=== PATIENT | female | born 1970 | race Two or more races ===

== ENCOUNTER → 2016-06-01 | Outpatient (CLI) | payer OTHER ==
[2015-02-22 15:44] VITALS: BP 111/71
[~2016-06-01] MED LIST: OXYC-323 PO; PROM25SU32 RC
[2016-06-01 15:27] LABS: BILIRUBIN,URINE NEG (NEG); CLARITY,URINE CLEAR; COLOR,URINE YELLOW; GLUCOSE,URINE NEG (NEG); NITRITE,URINE NEG (NEG); UROBILINOGEN,URINE 0.2 mg/dL (0.2 mg/dL)
[2016-06-01 15:28] LABS: BACTERIA,URINE FEW /HPF (0-FEW); SQUAMOUS EPITHELIAL CELL,UR FEW /LPF
[2016-06-03 19:10] LABS: ANA INTERP Negative (.)
== END | disposition home or self-care (01) ==
LOC: LAB 14:44
PROVIDERS: ATTEND Internal Medicine Gastroenterology
DX: R10.2 Pelvic and perineal pain (principal)
CPT/HCPCS: 36415; 81001; 87086

== ENCOUNTER → 2016-12-31 | Outpatient (CLI) | payer OTHER ==
[2015-02-22 15:44] VITALS: BP 111/71
[2016-12-31 09:35] LABS: HEMATOCRIT 40.7 % (36.0-47.0)
[2016-12-31 17:14] LABS: DHEA SO4 103.9 ug/dL (41.2-243.7); FSH 15.1 mIU/mL (.); PROLACTIN 11.8 ng/mL (4.8-23.3); TESTOSTERONE TOTAL 6 ng/dL (8-48)
[2016-12-31 18:10] LABS: CORTISOL AM 9.9 ug/dL (6.2-19.4); HEMOGLOBIN A1C 4.4 % (4.8-5.6)
[2017-01-01 16:07] LABS: ACTH 12.7 pg/mL (7.2-63.3)
== END | disposition home or self-care (01) ==
LOC: LAB 08:23
PROVIDERS: ATTEND Nurse Practitioner Family
DX: E46 Unspecified protein-calorie malnutrition (principal); M79.89 Other specified soft tissue disorders; R53.83 Other fatigue; E55.9 Vitamin D deficiency, unspecified
CPT/HCPCS: 36415; 82024; 82306; 82533; 82627; 82670; 83001; 83036; 84146; 84403; 84443; 85014; 85018; 86376

== ENCOUNTER 2017-01-24 13:39 | Emergency (ER) | payer OTHER ==
[~2017-01-24] VITALS: Ht 162.6 cm; Wt 72.6 kg
[2017-01-24 13:50] VITALS: BP 161/68
--- NOTE | 2017-01-24 14:06 | PHYS DOC ---
Past History Past Medical History: No Pertinent History Past Surgical History: Hysterectomy, Other Alcohol Use: Occasionally Drug Use: None Adult General Chief Complaint Chief Complaint: SORE THROAT HPI HPI Patient is a 47 year old F who presents with a cough and the sore throat. Patient states that for the past 2 days she's had a worsening cough and congestion with increasing sore throat. Patient denies any fevers. Patient denies any chest pain. Patient denies any nausea/vomiting/diarrhea. Patient has no other complaints. Review of Systems Review of Systems GEN: Denies fevers, chills, sweats HEENT: Sore throat CV: Denies chest pain RESP: Cough GI: Denies n/v/d NEURO: Denies confusion, dizziness MSK: Denies weakness, joint pain/swelling All other systems were reviewed and found to be within normal limits, except as documented in this note. Allergies Allergies Allergies Coded Allergies Type Severity Reaction Last Updated Verified Sulfa (Sulfonamide Antibiotics) Allergy Unknown Itching 02/22/15 Yes Physical Exam Physical Exam GEN.: No apparent distress. Alert and oriented. HEENT: Head is normocephalic, atraumatic, TMs clear bilaterally, posterior pharynx nonerythematous no tonsillar swelling NECK: Supple, no lymphadenopathy LUNGS: CTAB. HEART: RRR, S1, S2 present. Peripheral pulses intact ABDOMEN: Soft, nontender. Positive bowel sounds. EXTREMITIES: Without any cyanosis. NEUROLOGIC: Normal speech, normal tone PSYCHIATRIC: Normal affect, normal mood. SKIN: No ulcerations Current Patient Data Vital Signs Laboratory Tests Test 01/24/17 14:00 Group A Streptococcus Rapid Negative EKG EKG [] Radiology/Procedures Radiology/Procedures Chest x-ray NAD[] Course & Med Decision Making Course & Med Decision Making Pertinent Labs and Imaging studies reviewed. (See chart for details) ED course: Patient was seen and examined a chest x-ray and rapid strep was ordered 1420: Patient was updated on results and explained to the patient that she most likely has a viral infection is not eating a box at this time. She is stable for discharge. MDM: After reviewing the chart, CC/HPI/PMH, physical exam, [lab results], [ radiological results], I do not believe the patient has a severe bacterial infection warranting further workup and/or admission at this time. I believe the patient has a viral URI and can be discharged home with aebe-lqq-ebxrgrb treatment. Patient stable for discharge. Additional verbal discharge instructions were provided to the patient and that if symptoms get worse or any new symptoms arise that are worrisome to the patient she is to return to the emergency room immediately [] Dragon Disclaimer Dragon Disclaimer This electronic medical record was generated, in whole or in part, using a voice recognition dictation system. Departure Departure: Impression: Primary Impression: Viral URI with cough Disposition: 01 HOME, SELF-CARE Condition: STABLE Referrals: KOMAL HUBER APRN (PCP) Patient Instructions: Upper Respiratory Infection, Adult Additional Instructions: Please follow-up with your family physician in the next one to 2 days and return if symptoms increase MIRTA ESCOBEDO DO Jan 24, 2017 14:06
--- NOTE | 2017-01-24 14:24 | RAD ---
Indication: Cough for a couple of days. Technique: Two-view chest radiograph was obtained. No comparison is available. Findings: The lungs are clear. The cardiopulmonary silhouette is within normal limits. There is no pleural effusion. The bony structures are intact. Impression: No acute thoracic findings.
== END 2017-01-24 14:50 | disposition home or self-care (01) ==
LOC: ER 13:39
DX: J06.9 Acute upper respiratory infection, unspecified (principal); Z88.2 Allergy status to sulfonamides
CPT/HCPCS: 71020; 87070; 87880; 99285

== ENCOUNTER → 2017-02-16 | Outpatient (CLI) | payer OTHER ==
[2017-01-24 13:50] VITALS: BP 161/68
--- NOTE | 2017-02-16 15:12 | RAD ---
DATE: 02/16/2017 EXAM: MAMMO LAINEY SCREENING BILATERAL HISTORY: Routine screening COMPARISON: 06/23/2012 This study was interpreted with the benefit of Computerized Aided Detection (CAD). FINDINGS: Breast Density: SCATTERED The breast parenchyma shows scattered fibroglandular densities. Breast parenchyma level B. There are no dominant suspicious masses, suspicious microcalcifications or evidence of architectural distortion. IMPRESSION: Negative mammogram BI-RADS CATEGORY: 1 NEGATIVE RECOMMENDED FOLLOW-UP: 12M 12 MONTH FOLLOW-UP PQRS compliance statement: Patient information was entered into a reminder system with a target due date 02/16/2018 for the next mammogram. Mammography is a sensitive method for finding small breast cancers, but it does not detect them all and is not a substitute for careful clinical examination. A negative mammogram does not negate a clinically suspicious finding and should not result in delay in biopsying a clinically suspicious abnormality. "Our facility is accredited by the [employer] Mammography Program."
== END | disposition home or self-care (01) ==
LOC: MAMMO 13:57
PROVIDERS: ATTEND Nurse Practitioner Family
DX: Z12.31 Encounter for screening mammogram for malignant neoplasm of breast (principal); Z72.89 Other problems related to lifestyle
CPT/HCPCS: 77063; G0202; 77067

== ENCOUNTER → 2017-07-06 | Outpatient (CLI) | payer OTHER ==
[2017-07-06 08:25] LABS: BASO # 0.1 x10^3/uL (0.0-0.2); BASO % 1 % (0-3); EOS # 0.1 x10^3/uL (0.0-0.7); EOS % 1 % (0-3); HEMATOCRIT 41.6 % (36.0-47.0); HEMOGLOBIN 14.2 g/dL (12.0-15.5); LYMPH # 1.6 x10^3/uL (1.0-4.8); LYMPH % 15 % (24-48); MEAN CORPUSCULAR HEMOGLOBIN 32 pg (25-35); MEAN CORPUSCULAR HGB CONC 34 g/dL (31-37); MEAN CORPUSCULAR VOLUME 94 fL (79-100); MONO # 0.5 x10^3/uL (0.0-1.1); MONO % 5 % (0-9); NEUT # 8.3 x10^3uL (1.8-7.7); NEUT % 79 % (31-73); PLATELET COUNT 274 x10^3/uL (140-400); RED BLOOD COUNT 4.43 x10^6/uL (3.50-5.40); RED CELL DISTRIBUTION WIDTH 12.8 % (11.5-14.5); WHITE BLOOD COUNT 10.6 x10^3/uL (4.0-11.0)
[2017-07-06 08:36] LABS: ALBUMIN 3.6 g/dL (3.4-5.0); CALCIUM 8.6 mg/dL (8.5-10.1); CREATININE 0.8 mg/dL (0.6-1.0); DIRECT BILIRUBIN 0.1 mg/dL (0.0-0.2); GFR 76.6; POTASSIUM 3.6 mmol/L (3.5-5.1); TOTAL BILIRUBIN 0.4 mg/dL (0.2-1.0); TOTAL PROTEIN 7.1 g/dL (6.4-8.2)
[2017-07-06 08:37] LABS: BACTERIA,URINE FEW /HPF (0-FEW); BILIRUBIN,URINE NEG (NEG); CLARITY,URINE CLEAR; COLOR,URINE YELLOW; GLUCOSE,URINE NEG (NEG); NITRITE,URINE NEG (NEG); RBC,URINE 0 /HPF (0-2); SQUAMOUS EPITHELIAL CELL,UR OCC /LPF; UROBILINOGEN,URINE 0.2 mg/dL (0.2 mg/dL)
[2017-07-06 14:32] LABS: THYROID STIM HORMONE (TSH) 2.181 uIU/mL (0.358-3.740)
== END | disposition home or self-care (01) ==
LOC: LAB 07:02
PROVIDERS: ATTEND Nurse Practitioner Family
DX: E78.5 Hyperlipidemia, unspecified (principal); R30.0 Dysuria; R53.83 Other fatigue
CPT/HCPCS: 36415; 80048; 80061; 80076; 81001; 84436; 84443; 85025

== ENCOUNTER → 2017-08-31 | Outpatient (CLI) | payer OTHER ==
--- NOTE | 2017-08-31 10:37 | RAD ---
EXAM: Right ankle, 2 views. HISTORY: Pain and swelling. COMPARISON: None. FINDINGS: 2 views of the right ankle are obtained. There is no fracture, dislocation or subluxation. There is mild soft tissue swelling. IMPRESSION: 1. Mild right ankle soft tissue swelling. 2. No acute osseous finding. Electronically signed by: Kanwal Patel MD (08/31/2017 10:34 AM) [id number]
== END | disposition home or self-care (01) ==
LOC: DXRAD 09:23
PROVIDERS: ATTEND Physician Assistant Medical
DX: M79.89 Other specified soft tissue disorders (principal); E78.5 Hyperlipidemia, unspecified; E55.9 Vitamin D deficiency, unspecified
CPT/HCPCS: 73600

== ENCOUNTER 2017-11-08 03:38 | Emergency (ER) | payer OTHER ==
[2017-11-08 03:46] VITALS: BP 122/86
[2017-11-08 04:37] LABS: BACTERIA,URINE FEW /HPF (0-FEW); BILIRUBIN,URINE NEG (NEG); CLARITY,URINE CLEAR; COLOR,URINE YELLOW; GLUCOSE,URINE NEG (NEG); NITRITE,URINE NEG (NEG); RBC,URINE OCC /HPF (0-2); SQUAMOUS EPITHELIAL CELL,UR FEW /LPF; UROBILINOGEN,URINE 0.2 mg/dL (0.2 mg/dL)
--- NOTE | 2017-11-08 04:38 | PHYS DOC ---
Past History Past Medical History: No Pertinent History Past Surgical History: Hysterectomy, Other Alcohol Use: Occasionally Drug Use: None Adult General Chief Complaint Chief Complaint: URINARY FREQUENCY HPI HPI 47-year-old female presents with increased urinary frequency and upper respiratory symptoms. Patient states that she has a history of UTIs as she has had increased frequency the last couple of days. Over the same period, the patient has had increasing cough and nasal congestion. She denies fever or chills. 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 She denies any sputum. She denies shortness of breath or chest pain. Review of Systems Review of Systems Constitutional: Denies fever or chills [] Eyes: Denies change in visual acuity, redness, or eye pain [] HENT: Denies nasal congestion or sore throat [] Respiratory: Cough [] Cardiovascular: No additional information not addressed in HPI [] GI: Denies abdominal pain, nausea, vomiting, bloody stools or diarrhea [] : Increased urinary frequency [] Musculoskeletal: Denies back pain or joint pain [] Integument: Denies rash or skin lesions [] Neurologic: Denies headache, focal weakness or sensory changes [] Endocrine: Denies polyuria or polydipsia [] All other systems were reviewed and found to be within normal limits, except as documented in this note. Allergies Allergies Allergies Coded Allergies Type Severity Reaction Last Updated Verified Sulfa (Sulfonamide Antibiotics) Allergy Unknown Itching 02/22/15 Yes Physical Exam Physical Exam Constitutional: Well developed, well nourished, no acute distress, non-toxic appearance. [] HENT: Normocephalic, atraumatic, bilateral external ears normal, oropharynx moist, no oral exudates, nasal congestion. [] Eyes: PERRLA, EOMI, conjunctiva normal, no discharge. [] Neck: Normal range of motion, no tenderness, supple, no stridor. [] Cardiovascular:Heart rate regular rhythm, no murmur [] Lungs & Thorax: Bilateral breath sounds clear to auscultation [] Abdomen: Bowel sounds normal, soft, no tenderness, no masses, no pulsatile masses. [] Skin: Warm, dry, no erythema, no rash. [] Back: No tenderness, no CVA tenderness. [] Extremities: No tenderness, no cyanosis, no clubbing, ROM intact, no edema. [] Neurologic: Alert and oriented X 3, normal motor function, normal sensory function, no focal deficits noted. [] Psychologic: Affect normal, judgement normal, mood normal. [] EKG EKG [] Radiology/Procedures Radiology/Procedures [] Course & Med Decision Making Course & Med Decision Making Pertinent Labs and Imaging studies reviewed. (See chart for details) The patient's urinalysis was positive for leukocyte esterase and had 5-10 white cells. Given the patient's symptoms, I will treat this as urinary tract infection. She is allergic to sulfa so I will treat with nitrofurantoin for 5 days. [] Dragon Disclaimer Dragon Disclaimer This electronic medical record was generated, in whole or in part, using a voice recognition dictation system. Departure Departure: Referrals: AMITA HIGGINBOTHAM (PCP) REGINO PALM DO Nov 08, 2017 04:38
[2017-11-08] MEDS ORDERED: NITR100C62 PO (04:46)
== END 2017-11-08 05:00 | disposition home or self-care (01) ==
LOC: ER 03:38
DX: N39.0 Urinary tract infection, site not specified (principal); R09.81 Nasal congestion; Z90.710 Acquired absence of both cervix and uterus; Z88.2 Allergy status to sulfonamides
CPT/HCPCS: 81001; 87086; 87186; 99284

== ENCOUNTER → 2018-01-02 | Outpatient (CLI) | payer OTHER ==
[~2018-01-02] MED LIST changes: +NITR100C62 PO
[2018-01-02 15:53] LABS: BACTERIA,URINE 0 /HPF (0-FEW); BILIRUBIN,URINE NEG (NEG); CLARITY,URINE CLEAR; COLOR,URINE YELLOW; GLUCOSE,URINE NEG (NEG); NITRITE,URINE NEG (NEG); RBC,URINE RARE /HPF (0-2); SQUAMOUS EPITHELIAL CELL,UR OCC /LPF; UROBILINOGEN,URINE 0.2 mg/dL (0.2 mg/dL)
== END | disposition home or self-care (01) ==
LOC: LAB 15:05
PROVIDERS: ATTEND Physician Assistant Medical
DX: R30.0 Dysuria (principal)
CPT/HCPCS: 81001

== ENCOUNTER → 2018-01-03 | Outpatient (CLI) | payer OTHER ==
[2018-01-03 04:57] LABS: ALBUMIN 3.5 g/dL (3.4-5.0); ALBUMIN/GLOBULIN RATIO 0.9 (1.0-1.7); CALCIUM 8.7 mg/dL (8.5-10.1); CREATININE 0.8 mg/dL (0.6-1.0); GFR 76.6; POTASSIUM 3.6 mmol/L (3.5-5.1); TOTAL BILIRUBIN 0.3 mg/dL (0.2-1.0); TOTAL PROTEIN 7.2 g/dL (6.4-8.2)
[2018-01-03 20:11] LABS: HEMOGLOBIN A1C 4.9 % (4.8-5.6)
== END | disposition home or self-care (01) ==
LOC: LAB 03:08
PROVIDERS: ATTEND Physician Assistant Medical
DX: E78.49 Other hyperlipidemia (principal)
CPT/HCPCS: 36415; 80053; 80061; 83036

== ENCOUNTER → 2018-03-22 | Outpatient (CLI) | payer OTHER ==
[~2018-03-22] MED LIST changes: -OXYC-323 PO; +OXYC1TAB15 PO
--- NOTE | 2018-03-22 10:12 | RAD ---
DATE: 03/22/2018 EXAM: MAMMO LAINEY SCREENING BILATERAL HISTORY: Routine screening COMPARISON: 02/16/2017 This study was interpreted with the benefit of Computerized Aided Detection (CAD). Breast Density: SCATTERED The breast parenchyma shows scattered fibroglandular densities. Breast parenchyma level B. FINDINGS: 2-D and 3-D tomosynthesis imaging was performed in CC and MLO projections. No new or enlarging breast densities are seen. No suspicious microcalcifications are evident. IMPRESSION: Stable mammograms without evidence of malignancy. BI-RADS CATEGORY: 1 NEGATIVE RECOMMENDED FOLLOW-UP: 12M 12 MONTH FOLLOW-UP PQRS compliance statement: Patient information was entered into a reminder system with a target due date for the next mammogram. Mammography is a sensitive method for finding small breast cancers, but it does not detect them all and is not a substitute for careful clinical examination. A negative mammogram does not negate a clinically suspicious finding and should not result in delay in biopsying a clinically suspicious abnormality. "Our facility is accredited by the [employer] Mammography Program."
== END | disposition home or self-care (01) ==
LOC: MAMMO 08:03
PROVIDERS: ATTEND Physician Assistant Medical
DX: Z12.31 Encounter for screening mammogram for malignant neoplasm of breast (principal)
CPT/HCPCS: 77063; 77067

== ENCOUNTER → 2018-05-01 | Outpatient (CLI) | payer OTHER ==
[2018-05-01 10:31] LABS: ALBUMIN 3.6 g/dL (3.4-5.0); ALBUMIN/GLOBULIN RATIO 0.9 (1.0-1.7); CALCIUM 8.5 mg/dL (8.5-10.1); CREATININE 0.8 mg/dL (0.6-1.0); GFR 76.2; POTASSIUM 3.5 mmol/L (3.5-5.1); TOTAL BILIRUBIN 0.2 mg/dL (0.2-1.0); TOTAL PROTEIN 7.5 g/dL (6.4-8.2)
--- NOTE | 2018-05-01 11:29 | RAD ---
Chest, 2 views, 05/01/2018: HISTORY: Worsening peripheral edema Comparison is made to a study from 01/24/2017. The heart size and pulmonary vascularity are normal. No pulmonary infiltrate is seen. There is no evidence of pleural fluid. IMPRESSION: No acute cardiopulmonary abnormality is detected. Electronically signed by: Flako Romano MD (05/01/2018 11:26 AM) [facility]
[2018-05-01 13:50] LABS: THYROID STIM HORMONE (TSH) 1.967 uIU/mL (0.358-3.740)
[2018-05-01 13:51] LABS: FREE T4 0.87 ng/dL (0.76-1.46)
== END | disposition home or self-care (01) ==
LOC: PMG 09:31
PROVIDERS: ATTEND Registered Nurse
DX: R60.9 Edema, unspecified (principal); R30.0 Dysuria
CPT/HCPCS: 36415; 71046; 80053; 83880; 84439; 84443; 87086

== ENCOUNTER → 2018-06-19 | Outpatient (CLI) | payer OTHER | END | disposition home or self-care (01) | LOC: LAB 09:36 | PROVIDERS: ATTEND Registered Nurse | DX: R30.0 Dysuria (principal) | CPT/HCPCS: 87086; 87186 ==

== ENCOUNTER → 2018-07-03 | Outpatient (CLI) | payer OTHER | END | disposition home or self-care (01) | LOC: LAB 10:17 | PROVIDERS: ATTEND Registered Nurse | DX: N39.0 Urinary tract infection, site not specified (principal) | CPT/HCPCS: 87086 ==

== ENCOUNTER → 2018-09-04 | Outpatient (CLI) | payer OTHER | END | disposition home or self-care (01) | LOC: LAB 10:07 | PROVIDERS: ATTEND Registered Nurse | DX: R30.0 Dysuria (principal) | CPT/HCPCS: 87086 ==

== ENCOUNTER → 2018-09-05 | Outpatient (CLI) | payer OTHER ==
[~2018-09-05] MED LIST changes: +CYCL-331 PO; +HYDR-1179 PO
--- NOTE | 2018-09-05 16:47 | RAD ---
Examination: Ultrasound inferior left kidney HISTORY: History of lump inferior to the left knee IMPRESSION: 1. There is a 3.1 mm heterogeneous echogenicity identified in the soft tissue of the right knee without vascular flow within, could be edema or small nodule, uncertain etiology. Close interval follow-up examination may be considered. There is a 2.8 x 1.9 x 0.5 cm fluid collection identified in the soft tissue inferior to the knee could be bursal fluid. Electronically signed by: Luc Hassan MD (09/05/2018 4:45 PM) [facility]
== END | disposition home or self-care (01) ==
LOC: US 11:17
PROVIDERS: ATTEND Registered Nurse
DX: M25.862 Other specified joint disorders, left knee (principal)
CPT/HCPCS: 76881

== ENCOUNTER 2018-09-09 18:32 | Emergency (ER) | payer OTHER ==
[~2018-09-09] VITALS: Ht 162.6 cm; Wt 82.5 kg
[~2018-09-09 18:32] MED LIST changes: -CYCL-331 PO; -HYDR-1179 PO
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
[2018-09-09 18:44] VITALS: BP 128/81
[2018-09-09] MEDS ORDERED: MORPHINE SULFATE 10 MG/ML SYRINGE. SQ ONE (18:45)
[2018-09-09] MEDS ORDERED: ONDANSETRON ODT 4 MG TAB.RAPDIS ONE (18:54)
[2018-09-09] MEDS ORDERED: ONDANSETRON ODT 4 MG TAB.RAPDIS PO ONE (19:00)
[2018-09-09] MEDS ORDERED: HYDR-1179 PO (19:26)
[2018-09-09] MEDS ORDERED: CYCL-331 PO (19:26)
--- NOTE | 2018-09-09 19:43 | RAD ---
EXAM: Left elbow, 3 views; chest, 2 views. HISTORY: Pain. Fall. COMPARISON: None. FINDINGS: Chest: 2 views of the chest are obtained. There is no infiltrate, pleural effusion or pneumothorax. There is a faint nodular opacity overlying the left lower lobe likely due to a nipple shadow. Left elbow: 3 views left elbow are obtained. There is no fracture, dislocation or subluxation. There is no elbow effusion. IMPRESSION: No acute pulmonary or osseous finding. Electronically signed by: Kanwal Patel MD (09/09/2018 7:41 PM) [facility]
== END 2018-09-09 19:33 | disposition home or self-care (01) ==
LOC: ER 18:32
DX: S53.402A Unspecified sprain of left elbow, initial encounter (principal); S29.9XXA Unspecified injury of thorax, initial encounter; S00.31XA Abrasion of nose, initial encounter; Z88.2 Allergy status to sulfonamides; V92.09XA Drowning and submersion due to fall off unspecified watercraft, initial encounter; Y93.89 Activity, other specified; Y92.89 Other specified places as the place of occurrence of the external cause; Y99.8 Other external cause status
CPT/HCPCS: 71046; 73080; 96372; 99284; J2270; Q0162

== ENCOUNTER → 2018-10-03 | Outpatient (CLI) | payer OTHER ==
[2018-09-09 18:44] VITALS: BP 128/81
[~2018-10-03] MED LIST changes: +CYCL-331 PO; +HYDR-1179 PO
--- NOTE | 2018-10-03 16:49 | RAD ---
EXAM: AP views of both knees, lateral and tangential patellar view left knee DATE: 10/03/2018 12:00 AM INDICATION: Left knee pain COMPARISON: No Prior FINDINGS: Left knee: No evidence of acute fracture or dislocation. Joint spaces are preserved without significant degenerative/proliferative change. Neutral patellar tracking. No left knee joint effusion. Right knee: Single AP view right knee without evidence for acute fracture or dislocation. IMPRESSION: No evidence of acute fracture or dislocation. Joint spaces are preserved without significant degenerative/proliferative change. Electronically signed by: Micheal Lagos MD (10/03/2018 4:46 PM) [facility]
== END | disposition home or self-care (01) ==
LOC: DXRAD 09:43
PROVIDERS: ATTEND Orthopaedic Surgery Sports Medicine
DX: M25.562 Pain in left knee (principal)
CPT/HCPCS: 73562

== ENCOUNTER → 2018-10-30 | Outpatient (CLI) | payer OTHER ==
--- NOTE | 2018-10-30 17:05 | RAD ---
EXAM: Left humerus, 2 views. HISTORY: Pain. COMPARISON: None. FINDINGS: 2 views left humerus are obtained. There is no fracture, dislocation or subluxation. There is no lytic or sclerotic osseous lesion or periosteal reaction. IMPRESSION: No acute osseous finding. Electronically signed by: Kanwal Patel MD (10/30/2018 5:02 PM) [facility]
== END | disposition home or self-care (01) ==
LOC: RAD 16:43
PROVIDERS: ATTEND Registered Nurse
DX: M79.602 Pain in left arm (principal); R35.0 Frequency of micturition
CPT/HCPCS: 73060; 87086

== ENCOUNTER → 2018-12-26 | Outpatient (CLI) | payer OTHER ==
--- NOTE | 2018-12-26 11:30 | CARD ---
MR#: [id number] Date of Study: 12/26/2018 Ordering Physician: LACEY MARINO, Referring Physician: LACEY MARINO Tech: Camille Xie RDCS APPROVED REPORT EXAM: Two-dimensional and M-mode echocardiogram with Doppler and color Doppler. Other Information Quality : AverageHR: 92bpm Rhythm : NSR INDICATION EDEMA 2D DIMENSIONS RVDd3.2 (2.9-3.5cm)Left Atrium(2D)3.4 (1.6-4.0cm) IVSd1.0 (0.7-1.1cm)Aortic Root(2D)3.0 (2.0-3.7cm) LVDd4.4 (3.9-5.9cm)LVOT Diameter2.0 (1.8-2.4cm) PWd0.8 (0.7-1.1cm)LVDs3.0 (2.5-4.0cm) FS (%) 31.4 %SV51.8 ml LVEF(%)59.5 (>50%) M-Mode DIMENSIONS Left Atrium(MM)3.29 (2.5-4.0cm)Aortic Root2.86 (2.2-3.7cm) Aortic Valve AoV Peak Damir.115.4cm/sAoV VTI21.0cm AO Peak GR.5.3mmHgLVOT Peak Damir.95.3cm/s LVOT VTI 19.92cmAO Mean GR.3mmHg SHAWN (VMAX)2.44nz3CWX (VTI)2.90cm2 Mitral Valve MV E Hlyziszs58.1cm/sMV DECEL JAVD777ch MV A Cmgqdtwc97.2cm/sE/A Ratio1.8 Pulmonary Valve PV Peak Ixzozmbk20.2cm/sPV Peak Grad.3mmHg Tricuspid Valve TR P. Tvkfvvwp553si/sRAP GLSESFMO6zsQq TR Peak Gr.03jsHfNNLK60gzXg LEFT VENTRICLE The left ventricle is normal size. There is normal left ventricular wall thickness. The left ventricu lar systolic function is normal. The Ejection Fraction is 55-60%. There is normal LV segmental wall m otion. Transmitral Doppler flow pattern is Grade II-pseudonormal filling dynamics. RIGHT VENTRICLE The right ventricle is normal size. There is normal right ventricular wall thickness. The right ventr icular systolic function is normal. ATRIA The left atrium size is normal. The right atrium size is normal. The interatrial septum is intact wit h no evidence for an atrial septal defect or patent foramen ovale as noted on 2-D or Doppler imaging. AORTIC VALVE The aortic valve is normal in structure and function. The aortic valve is trileaflet. Doppler and Col or Flow revealed no significant aortic regurgitation. There is no significant aortic valvular stenosi s. There is no aortic valvular vegetation. MITRAL VALVE The mitral valve is normal in structure and function. There is no evidence of mitral valve prolapse. There is no mitral valve stenosis. Doppler and Color-flow revealed trace mitral regurgitation. TRICUSPID VALVE The tricuspid valve is normal in structure and function. Doppler and Color Flow revealed trace tricus pid regurgitation. The PA pressure was estimated at 28 mmHg. There is no tricuspid valve prolapse or vegetation. There is no tricuspid valve stenosis. PULMONIC VALVE The pulmonic valve is not well visualized. GREAT VESSELS The aortic root is normal in size. The ascending aorta is normal in size. The IVC is normal in size a nd collapses >50% with inspiration. PERICARDIAL EFFUSION There is no evidence of significant pericardial effusion. Critical Notification Critical Value: No <Conclusion> The left ventricular systolic function is normal. The Ejection Fraction is 55-60%. There is normal LV segmental wall motion. Trace mitral regurgitation. Trace tricuspid regurgitation. The PA pressure was estimated at 28 mmHg. There is no evidence of significant pericardial effusion. Signed by : Lacey Marino, Electronically Approved : 12/26/2018 11:30:18
== END | disposition home or self-care (01) ==
LOC: ECHO 09:01
PROVIDERS: ATTEND Internal Medicine Cardiovascular Disease
DX: R60.9 Edema, unspecified (principal)
CPT/HCPCS: 93306

== ENCOUNTER → 2019-01-04 | Outpatient (CLI) | payer OTHER ==
--- NOTE | 2019-01-04 10:38 | RAD ---
MR#: [id number] Date of Study: 01/04/2019 Ordering Physician: LACEY ALVARADO, Referring Physician: Gladis CULLEN: Amira Bass RDMS RVT APPROVED REPORT Patient Location : OUT-PATIENT Indications Lower Extremity Edema : Bilateral Grayscale images of the bilateral saphenofemoral junctions are grossly unremarkable. The right great saphenous vein measures 5 mm in the left great saphenous vein measures 3 mm. No evidence of reflux in the bilateral greater saphenous veins. Negative for reflux in the bilateral lesser saphenous veins. Critical Notification Critical Value: No <Conclusion> No significant reflux identified in the bilateral lower extremities Signed by : Alexx Hedrick, Electronically Approved : 01/04/2019 10:38:16
== END | disposition home or self-care (01) ==
LOC: US 07:34
PROVIDERS: ATTEND Internal Medicine Cardiovascular Disease
DX: R60.9 Edema, unspecified (principal); M79.89 Other specified soft tissue disorders
CPT/HCPCS: 93970

== ENCOUNTER → 2019-01-10 | Outpatient (CLI) | payer OTHER | END | disposition home or self-care (01) | LOC: LAB 09:32 | PROVIDERS: ATTEND Registered Nurse | DX: R82.998 Other abnormal findings in urine (principal) | CPT/HCPCS: 87086 ==

== ENCOUNTER → 2019-02-28 | Outpatient (CLI) | payer OTHER | END | disposition home or self-care (01) | LOC: LAB 10:12 | PROVIDERS: ATTEND Registered Nurse | DX: R35.0 Frequency of micturition (principal) | CPT/HCPCS: 87086 ==

== ENCOUNTER → 2019-03-08 | Outpatient (CLI) | payer OTHER ==
--- NOTE | 2019-03-08 11:05 | RAD ---
Bilateral renal ultrasound without comparison for frequent UTIs. Technique and findings: Real-time grayscale and color Doppler evaluation of the kidneys and urinary bladder is performed. The right kidney measures 9.8 x 4.4 x 5.2 cm and the left measures 10.8 x 5.3 x 4.9 cm. There is no hydronephrosis or parenchymal abnormality involving either kidney. There is normal color flow to both kidneys. The urinary bladder is only partially fluid distended, limiting evaluation. No definite abnormalities. Ureteral jets are not identified. The aorta and IVC were not interrogated. IMPRESSION: 1. No sonographically discernible renal abnormality. Electronically signed by: Chaz Thakur MD (03/08/2019 11:02 AM) [facility]
== END | disposition home or self-care (01) ==
LOC: US 09:37
PROVIDERS: ATTEND Registered Nurse
DX: N39.0 Urinary tract infection, site not specified (principal)
CPT/HCPCS: 76770

== ENCOUNTER → 2019-06-04 | Outpatient (CLI) | payer OTHER | END | disposition home or self-care (01) | LOC: LAB 09:44 | PROVIDERS: ATTEND Registered Nurse | DX: R35.0 Frequency of micturition (principal) | CPT/HCPCS: 87086 ==

== ENCOUNTER → 2019-11-06 | Outpatient (CLI) | payer OTHER ==
[2019-11-06 11:52] LABS: BACTERIA,URINE FEW /HPF (0-FEW); BILIRUBIN,URINE NEG (NEG); CLARITY,URINE CLEAR; COLOR,URINE YELLOW; GLUCOSE,URINE NEG (NEG); NITRITE,URINE NEG (NEG); RBC,URINE RARE /HPF (0-2); SQUAMOUS EPITHELIAL CELL,UR FEW /LPF; UROBILINOGEN,URINE 0.2 mg/dL (0.2 mg/dL)
== END ==
LOC: LAB 10:21
PROVIDERS: ATTEND Family Medicine
DX: Z87.440 Personal history of urinary (tract) infections (principal)
CPT/HCPCS: 81001; 87086

== ENCOUNTER → 2020-02-18 | Outpatient (CLI) | payer OTHER | LOC: LAB 09:58 | PROVIDERS: ATTEND Physician Assistant Medical | DX: N89.8 Other specified noninflammatory disorders of vagina (principal) | CPT/HCPCS: 36415 ==

== ENCOUNTER → 2020-04-10 | Outpatient (CLI) | payer OTHER ==
--- NOTE | 2020-04-10 09:30 | RAD ---
EXAM: CT head without contrast INDICATION: Atypical migraine, nerve pain COMPARISON: None TECHNIQUE: Axial CT imaging through the head without intravenous contrast. One or more of the following individualized dose reduction techniques were utilized for this examinat ion: 1. Automated exposure control 2. Adjustment of the mA and/or kV according to patient size 3. Use of iterative reconstruction technique. FINDINGS: No intracranial hemorrhage, acute infarct, or mass lesion. Desir-white matter differentiation is maint ained. Ventricles and sulci are normal. The skull and scalp are intact. The visualized paranasal sinu ses and mastoid metatarsals are clear. Visualized portion of globes and orbits are unremarkable.. IMPRESSION: No acute intracranial abnormality. Electronically signed by: Kelly Carroll MD (04/10/2020 9:28 AM) [id number]
== END ==
LOC: CT 08:45
PROVIDERS: ATTEND Physician Assistant Medical
DX: G43.009 Migraine without aura, not intractable, without status migrainosus (principal); M79.2 Neuralgia and neuritis, unspecified
CPT/HCPCS: 70450

== ENCOUNTER → 2020-05-23 | Outpatient (CLI) | payer OTHER | LOC: LAB 13:53 | PROVIDERS: ATTEND Nurse Practitioner Family | DX: N89.8 Other specified noninflammatory disorders of vagina (principal) | CPT/HCPCS: 87480; 87510; 87660 ==

== ENCOUNTER → 2020-06-11 | Outpatient (CLI) | payer OTHER ==
--- NOTE | 2020-06-11 16:08 | RAD ---
Retroperitoneal ultrasound INDICATION: Recurrent UTIs. TECHNIQUE: Grayscale, color and spectral Doppler imaging of the retroperitoneum was performed FINDINGS: Right kidney measures 10.4 x 4.4 x 4.5 cm and demonstrates mild hydronephrosis. No stones. Left kidney measures 11.0 x 4.6 x 4.7 cm. No stones. No hydronephrosis. Abdominal aorta is not visualized proximally but is normal in caliber at the midportion at 2.1 cm and 2.2 cm distally. The IVC is patent and demonstrates normal waveforms. The urinary bladder prevoid measures 225 mL. There is a minimal right ureteral jet and a normal left ureteral jet noted. Post void, the urinary bladder measures 10.7 mL. IMPRESSION: Mild right hydronephrosis and small post void residual. Cannot exclude stenosis along the right ureter. Otherwise unremarkable retroperitoneal ultrasound. Electronically signed by: Zechariah Myers MD (06/11/2020 4:06 PM) [id number]
== END ==
LOC: US 09:45
PROVIDERS: ATTEND Urology
DX: N13.39 Other hydronephrosis (principal)
CPT/HCPCS: 76770

== ENCOUNTER → 2020-06-12 | Outpatient (CLI) | payer OTHER ==
[~2020-06-12] MED LIST changes: +IOHEXOL 300 MG/ML 75 ML VIAL. IV ONE
--- NOTE | 2020-06-12 17:28 | RAD ---
CT scan of the abdomen and pelvis without and with contrast (CT urogram protocol) 06/12/2020 CLINICAL HISTORY: Recurrent UTIs. Mild right hydronephrosis seen on the ultrasound. TECHNIQUE: Unenhanced contiguous, 3 mm axial sections were obtained through the abdomen and pelvis. A fter the intravenous administration of 100 cc of Omnipaque 350 using a split bolus and 10 minute del ay, contiguous, 0.625 mm axial sections were obtained through the abdomen and pelvis. 3 mm reconstruc bere axial and 3 mm sagittal and coronal reconstructed images were obtained. One or more of the following individualized dose reduction techniques were utilized for this study: 1. Automated exposure control. 2. Adjustment of the mA and/or kV according to patient size. FINDINGS: Comparison is made to the patient's renal ultrasound dated 06/11/2020. Images through the lung bases demonstrate minimal dependent subsegmental atelectasis bilaterally. The unenhanced CT images demonstrate a 2 mm nonobstructing calculus involving the midpole of the left kidney. No right renal calculus is seen. No ureteral calculus is noted. On the postcontrast images the liver, spleen, pancreas, and adrenal glands are within normal limits. Normal perfusion, uptake and excretion of contrast by both kidneys is seen. No focal abnormality of e ither kidney is noted. There is no evidence of obstruction or duplication of either collecting system . The course of both ureters is within normal limits. No abnormality of either ureter is seen. The abdominal aorta tapers normally. The gallbladder is contracted. No free fluid or free air is seen within the abdomen. There is no evidence of bowel obstruction. The appendix is well-visualized and i s within normal limits. Images through the pelvis demonstrate the urinary bladder distended with contrast and urine. Calcific ations are seen within the pelvis consistent with phleboliths. No adnexal mass is seen. No free fluid is noted. The patient appears to be post hysterectomy. Minimal S-shaped curvature of the thoracolumb ar spine is seen. Degenerative changes are seen involving the lower thoracic and mid and lower lumbar spine. IMPRESSION: 2 mm nonobstructing left renal calculus. Otherwise negative study. Electronically signed by: Mckay Del Rio MD (06/12/2020 5:26 PM) [id number]
== END ==
LOC: CT 12:33
PROVIDERS: ATTEND Urology
DX: N20.0 Calculus of kidney (principal); N13.30 Unspecified hydronephrosis; J98.11 Atelectasis; M47.815 Spondylosis without myelopathy or radiculopathy, thoracolumbar region
CPT/HCPCS: 74178; Q9967

== ENCOUNTER → 2020-06-24 | Outpatient (CLI) | payer OTHER ==
[~2020-06-24] MED LIST changes: -IOHEXOL 300 MG/ML 75 ML VIAL. IV ONE
--- NOTE | 2020-06-24 12:48 | RAD ---
XR SHOULDER_LEFT 2+ VIEWS History: Reason: COUGH, SHOULDER PAIN / Spl. Instructions: / History: Technique: 3 views left shoulder Comparison: None. Findings: Normal alignment of the left glenohumeral and acromioclavicular joints. No fracture. Mild left acromi oclavicular DJD. Impression: 1. No acute osseous abnormality. Electronically signed by: Madhu Rosenberg DO (06/24/2020 12:46 PM) [id number]
--- NOTE | 2020-06-24 12:49 | RAD ---
XR CHEST 2V History: Reason: CHEST PAIN , SHOULDER PAIN HX OF ROTATOR CUFF SURG / Spl. Instructions: / History: Comparison: September 09, 2018 Findings: No consolidation or pleural effusion. Normal heart size. No pneumothorax. Impression: 1. No acute cardiopulmonary process. Electronically signed by: Madhu Rosenberg DO (06/24/2020 12:47 PM) [id number]
== END ==
LOC: RAD 12:11
PROVIDERS: ATTEND Nurse Practitioner Family
DX: M19.012 Primary osteoarthritis, left shoulder (principal); R07.81 Pleurodynia
CPT/HCPCS: 71046; 73030

== ENCOUNTER → 2020-10-29 | Outpatient (CLI) | payer OTHER | LOC: LAB 17:18 | PROVIDERS: ATTEND Nurse Practitioner Family | DX: N30.01 Acute cystitis with hematuria (principal) | CPT/HCPCS: 87086 ==

== ENCOUNTER → 2021-01-07 | Outpatient (CLI) | payer OTHER ==
[~2021-01-07] MED LIST changes: -CYCL-331 PO; +CYCL10TA19 PO
--- NOTE | 2021-01-07 12:36 | RAD ---
Screening bilateral digital mammogram with tomography dated 01/07/2021. INDICATION: 50 years of age asymptomatic female patient presents for screening mammography. . TECHNIQUE: Full field craniocaudal and mediolateral oblique images of both breasts were obtained usi ng digital technique with tomosynthesis and also analyzed with computer-aided detection software. . COMPARISON: 03/22/2018 02/16/2017 .. BREAST COMPOSITION: Category B: There are scattered fibroglandular densities. FINDINGS: Breast parenchyma is stable. No suspicious clustered calcification or architectural distortion. No di screte mass. The visualized axillae are unremarkable. IMPRESSION: No mammographic evidence of malignancy. RECOMMENDATION: Annual screening mammography is recommended, unless clinically indicated sooner based on symptoms or change in physical exam. BIRADS 1: NEGATIVE This study was interpreted with the benefit of Computerized Aided Detection (CAD). Recommend routine screening exam in one year. Patient information is entered into the reminder system with a target due date for the next screening mammogram. Mammography is the most sensitive method for finding small breast cancers, but it does not detect the m all and is not a substitute for careful clinical examination. A negative mammogram does not negate a clinically suspicious finding and should not result in delay in biopsying a clinically suspicious a bnormality. "Our facility is accredited by the [place] [employer] Mammography Program." Electronically signed by: Gerardo Velasquez MD (01/07/2021 12:34 PM) [id number]
== END ==
LOC: MAMMO 10:43
PROVIDERS: ATTEND Physician Assistant Medical
DX: Z12.31 Encounter for screening mammogram for malignant neoplasm of breast (principal)
CPT/HCPCS: 77063; 77067

== ENCOUNTER → 2021-01-13 | Outpatient (CLI) | payer OTHER ==
[2021-01-13 10:41] LABS: BASO # 0.1 x10^3/uL (0.0-0.2); BASO % 1 % (0-3); EOS # 0.1 x10^3/uL (0.0-0.7); EOS % 1 % (0-3); HEMATOCRIT 42.8 % (36.0-47.0); HEMOGLOBIN 14.2 g/dL (12.0-15.5); LYMPH # 2.3 x10^3/uL (1.0-4.8); LYMPH % 36 % (24-48); MEAN CORPUSCULAR HEMOGLOBIN 32 pg (25-35); MEAN CORPUSCULAR HGB CONC 33 g/dL (31-37); MEAN CORPUSCULAR VOLUME 95 fL (79-100); MONO # 0.4 x10^3/uL (0.0-1.1); MONO % 7 % (0-9); NEUT # 3.4 x10^3uL (1.8-7.7); NEUT % 55 % (31-73); PLATELET COUNT 268 x10^3/uL (140-400); RED BLOOD COUNT 4.52 x10^6/uL (3.50-5.40); RED CELL DISTRIBUTION WIDTH 13.1 % (11.5-14.5); WHITE BLOOD COUNT 6.2 x10^3/uL (4.0-11.0)
[2021-01-13 10:56] LABS: ALBUMIN 4.1 g/dL (3.4-5.0); ALBUMIN/GLOBULIN RATIO 1.1 (1.0-1.7); CALCIUM 9.5 mg/dL (8.5-10.1); CREATININE 0.8 mg/dL (0.6-1.0); GFR 75.6; POTASSIUM 4.2 mmol/L (3.5-5.1); TOTAL BILIRUBIN 0.3 mg/dL (0.2-1.0); TOTAL PROTEIN 7.9 g/dL (6.4-8.2)
[2021-01-13 18:24] LABS: FREE T4 1.02 ng/dL (0.76-1.46); THYROID STIM HORMONE (TSH) 2.602 uIU/mL (0.358-3.740)
[2021-01-14 01:10] LABS: FSH 83.4 mIU/mL (.); LUTEINIZING HORMONE 46.1 mIU/mL (.)
[2021-01-14 02:10] LABS: PROGESTERONE <0.1 ng/mL (.)
[2021-01-15 22:12] LABS: ESTROGEN LEVEL 68 pg/mL (.)
== END ==
LOC: LAB 07:58
PROVIDERS: ATTEND Physician Assistant Medical
DX: E55.9 Vitamin D deficiency, unspecified (principal); N32.81 Overactive bladder; N95.1 Menopausal and female climacteric states; R30.0 Dysuria
CPT/HCPCS: 36415; 80053; 80061; 82306; 82672; 83001; 83002; 84144; 84439; 84443; 85025

== ENCOUNTER → 2021-02-09 | Outpatient (CLI) | payer OTHER ==
--- NOTE | 2021-02-09 08:30 | RAD ---
Examination: Ultrasound abdomen limited HISTORY: History of elevated liver enzymes Comparison: None available Findings: The liver length measures 14.1 cm. Mild increased echogenicity identified in the liver. The common bi le duct measures 2 mm in transverse dimension. The pancreas, aorta, IVC are not well-visualized due t o bowel gas. The gallbladder is mildly distended. No evidence of gallstones. The right kidney measure s 10.7 x 4.2 x 4.6 cm. IMPRESSION: 1. Mild increased echogenicity identified in the liver likely hepatic steatosis. Electronically signed by: Luc Hassan MD (02/09/2021 8:27 AM) [id number]
== END ==
LOC: US 06:37
PROVIDERS: ATTEND Physician Assistant Medical
DX: R74.8 Abnormal levels of other serum enzymes (principal); K82.8 Other specified diseases of gallbladder
CPT/HCPCS: 76705

== ENCOUNTER → 2021-04-28 | Outpatient (CLI) | payer OTHER ==
[2021-04-29 07:12] LABS: FSH 65.3 mIU/mL (.); LUTEINIZING HORMONE 59.3 mIU/mL (.); PROGESTERONE <0.1 ng/mL (.)
== END ==
LOC: LAB 07:37
PROVIDERS: ATTEND Physician Assistant Medical
DX: E34.9 Endocrine disorder, unspecified (principal); N39.0 Urinary tract infection, site not specified; N95.1 Menopausal and female climacteric states
CPT/HCPCS: 36415; 82672; 83001; 83002; 84144; 87077; 87086; 87186

== ENCOUNTER → 2021-07-15 | Outpatient (CLI) | payer OTHER ==
--- NOTE | 2021-07-15 14:42 | RAD ---
Three-view left shoulder dated 07/15/2021 COMPARISON: None. INDICATION: Pain after fall. FINDINGS: 3 views left shoulder show normal bony alignment. No displaced fracture. No periostitis or bone destr uction. Minimal hypertrophic change of the AC joint. IMPRESSION: No acute findings. Electronically signed by: Gerardo Velasquez MD (07/15/2021 2:39 PM) ARTEMIO
--- NOTE | 2021-07-15 14:42 | RAD ---
Three-view left knee dated 07/15/2021. No comparison available. CLINICAL INDICATION: Pain. FINDINGS: 3 views left knee show normal bony alignment. No displaced fracture. No periostitis or bone destructi on. No acute osseous or articular abnormality. No apparent joint effusion or loose body. IMPRESSION: No acute radiographic abnormality. Electronically signed by: Gerardo Velasquez MD (07/15/2021 2:40 PM) ARTEMIO
--- NOTE | 2021-07-15 14:43 | RAD ---
Three-view cervical spine dated 07/15/2021 COMPARISON: None. INDICATION: Pain after fell. FINDINGS: 3 view cervical spine show normal sagittal alignment. Vertebral body heights are maintained. No preve rtebral soft tissue swelling. Posterior element are intact. No evidence of fracture. C1-C2 articulati on is unremarkable. IMPRESSION: No acute findings. Electronically signed by: Gerardo Velasquez MD (07/15/2021 2:40 PM) ARTEMIO
== END ==
LOC: RAD 12:59
PROVIDERS: ATTEND Nurse Practitioner Family
DX: M25.562 Pain in left knee (principal); M25.512 Pain in left shoulder; W19.XXXA Unspecified fall, initial encounter
CPT/HCPCS: 72040; 73030; 73562

== ENCOUNTER → 2021-08-05 | Outpatient (CLI) | payer OTHER ==
--- NOTE | 2021-08-05 23:33 | RAD ---
Exam: Left hip 2 views with pelvis INDICATION: Pain, fall TECHNIQUE: Frontal view of pelvis with frontal and frog-leg lateral views left hip Comparisons: None FINDINGS: Bone mineralization is normal. No acute fractures. Soft tissues are unremarkable. Joint spaces are we ll-maintained. IMPRESSION: No acute osseous abnormality Electronically signed by: Christy Cabrales MD (08/05/2021 11:30 PM) CLAUDETTE
--- NOTE | 2021-08-05 23:35 | RAD ---
5 view lumbosacral spine HISTORY: Pain after fell at work AP lateral and coned down lateral view and bilateral oblique views The vertebral bodies are aligned. There is no loss of vertebral body stature. Intervertebral disc hei ghts are preserved. IMPRESSION: Negative examination. Electronically signed by: Jed Burgess III, MD (08/05/2021 11:32 PM) KELLY
== END ==
LOC: RAD 17:31
PROVIDERS: ATTEND Physician Assistant Medical
DX: M25.552 Pain in left hip (principal)
CPT/HCPCS: 72110; 73502